=== PATIENT | female | born 1985 | race Caucasian/White ===

== ENCOUNTER 2023-02-11 19:21 | Emergency (ER) | payer SELFPAY ==
[~2023-02-11] VITALS: Ht 152.4 cm; Wt 56.7 kg
[2023-02-11 19:50] VITALS: BP_SYST 133; PULSE 88; RESP 16; TEMP 97.1; O2SAT 100
[2023-02-11] MEDS ORDERED: IBUPROFEN 600 MG TABLET PO ONE (22:00)
[2023-02-11] MEDS ORDERED: NAPR-690 PO (23:32)
== END 2023-02-11 23:49 | disposition home or self-care (01) ==
LOC: SED 19:21
DX: S13.4XXA Sprain of ligaments of cervical spine, initial encounter (principal); S43.402A Unspecified sprain of left shoulder joint, initial encounter; Z79.899 Other long term (current) drug therapy; W93.2XXA Prolonged exposure in deep freeze unit or refrigerator, initial encounter; Y93.89 Activity, other specified; Y92.89 Other specified places as the place of occurrence of the external cause; Y99.8 Other external cause status
CPT/HCPCS: 72040-TC; 73030; 99284